=== PATIENT | female | born 1955 | race Caucasian/White ===

== ENCOUNTER 2025-03-06 08:01 | Emergency (ER) | payer OTHER, MEDICARE, SELFPAY ==
--- NOTE | ~2025-03-06 | XR_ITS ---
XR elbow LT min 3V 03/06/2025 08:37 Indication: Status post fall 6 days ago. Left elbow pain. Procedure: 4 views left elbow Comparison: No prior studies for comparison. Findings: There is an avulsion fracture of the radial head. 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 The re is a large joint effusion. The distal humerus is intact. Impression: 1: Avulsion fracture of the radial head with large joint effusion. Reviewed, dictated and finalized at location [] Impression: 1: Avulsion fracture of the radial head with large joint effusion.
--- NOTE | ~2025-03-06 | XR_ITS ---
XR wrist LT min 3V 03/06/2025 08:37 Indication: Left wrist pain status post fall 6 days ago Procedure: 4 views left wrist Comparison: No prior studies for comparison. Findings: No acute fracture or traumatic malalignment. There is mild osteoarthritis of the triscaphe joint. No focal soft tissue abnormality. No foreign bodies. There is a cortical lytic lesion of the d istal radial metaphysis dorsally. Impression: 1: Cortical lytic lesion distal radial metaphysis dorsally. Consider metastatic disease and myeloma. Correlate for history of malignancy. Reviewed, dictated and finalized at location [] Impression: 1: Cortical lytic lesion distal radial metaphysis dorsally. Consider metastatic disease and myeloma. Correlate for history of malignancy.
--- NOTE | 2025-03-06 08:02 | ED.UPPEXIN ---
HPI - Extremity Injury (Upper) General Chief Complaint: Extremity Injury, Upper Stated Complaint: INJURED L ARM/ELBOW Time Seen by Provider: 03/06/25 08:02 Source: patient Mode of arrival: ambulatory Limitations: no limitations History of Present Illness HPI narrative: Emy is a 70-year-old female patient presenting to the clinic today with complaints of a left wrist/elbow injury after falling. She reports either or Tuesday of last week she fell when she was leaving a friend's house. States that she tripped over some bricks and put her left arm out to brace her fall. States did not have pain initially however is reporting pain to the left wrist and left elbow that started 2-3 days after her initial fall. Denies hitting her head or any loss of consciousness. No neck pain. Is wearing a sling at this time. Took Aleve last night for pain. Related Data Allergies Allergy/AdvReac Type Severity Reaction Status Date / Time codeine Allergy Severe Nausea and Verified 03/06/25 08:20 Vomiting Review of Systems Review of Systems: Pertinent positives per HPI. Patient denies any fever, chills, rash, headache, visual changes, dizziness, cough, runny nose, sore throat, shortness of breath, chest pain, palpitations, nausea, vomiting, diarrhea, constipation, abdominal pain, or any urinary issues. PMFSH Past Medical History Medical History High blood pressure Thyroid disorder Social History Social History Smoking status: Never smoker Comments At the time of my signature, I reviewed and agree with the nursing past medical, surgical, social, and family history. There is no relevant family history pertinent to the patient complaint. Exam Narrative: General: Well-developed, well nourished, in no apparent distress Head: Normocephalic, atraumatic. Cardio: Regular rate and rhythm, s1 and s2 normal, no murmur appreciated. Resp: Clear to auscultation bilaterally, no rhonchi, rales, wheezing or rubs. Musculoskeletal: No deformity, tender to palpation over the dorsal radial wrist and the posterior elbow, elbow swelling noted, limited ROM due to swelling and pain of the left elbow, pain with extension and flexion of the long left elbow as well as supination and pronation, pain with ulnar and radial deviation as well as some flexion and extension of the left wrist, muscle strength strong and equal, peripheral pulse strong, no cyanosis, normal gait and station Course Course Emergency Course: Portions of this record may have been created with voice recognition software. Level of Care: Express Care Visit Vital Signs Vital signs: Vital Signs Temperature 36.5 C 03/06/25 08:14 Pulse Rate 97 03/06/25 08:14 Respiratory Rate 16 03/06/25 08:14 Blood Pressure 171/90 H 03/06/25 08:14 Pulse Oximetry 97 03/06/25 08:14 Oxygen Delivery Room Air 03/06/25 08:14 Temperature 36.5 C 03/06/25 08:14 Pulse Rate 97 03/06/25 08:14 Respiratory Rate 16 03/06/25 08:14 Blood Pressure 171/90 H 03/06/25 08:14 Pulse Oximetry 97 03/06/25 08:14 Oxygen Delivery Room Air 03/06/25 08:14 Vital signs reviewed MDM - Extremity Injury (Upper) MDM Narrative Medical decision making narrative: At the time of visit patient is resting comfortably on the exam table. Patient appears to be nontoxic. Diagnostics: X-rays of the left elbow and left wrist were obtained. X-ray of the left elbow shows an avulsion fracture of the radial head with a large joint effusion. X-ray of the left wrist shows a cortical lytic bone lesion of the distal radial metaphysis dorsally. Consider metastatic disease and melanoma. Correlate for malignancy. Plan: Patient denies any history of past or present cancer. X-ray of the elbow shows an avulsion fracture we will put the left arm and a long-arm splint. Will have patient follow-up with Dr. Alvarez and Dr. Sapp for further evaluation of avulsion fracture and bone lesion. Patient will likely need further imaging, blood work, and possible biopsies. Supportive measures were discussed with the patient and they voiced understanding discharge instructions and agrees to treatment plan. Return precautions reviewed Differential Diagnosis Differential diagnosis: Likely sprain and strain of wrist, fracture of wrist, fracture of humerus and other (Proximal radial fracture, contusion, soft tissue swelling/injury) Discharge Plan Discharge Clinical Impression: Closed fracture of radial head, Lesion of bone of wrist Patient Disposition: Home Condition: Stable Instructions: Antibiotic Form, Arm Fracture in Adults (ED) Additional Instructions: Rest, ice, elevate, and wear long arm OCL and arm sling as directed Tylenol/motrin for pain as discussed. Take hydrocodone as needed for moderate to severe pain Follow up with your PCP as needed Follow-up with orthopedic provider- Dr. Alvarez- call office to schedule an appointment Patient Language: Armenian Prescriptions: New hydrocodone-acetaminophen 5-325 mg tablet 1 tablet PO Q6H PRN (Reason: pain) 3 Days Qty: 12 0RF Follow-up/Referrals: Thor Sapp MD [Primary Care Provider] - Ramses Alvarez MD [Physician] - 1 Day (Avulsion fracture of the left radial head with the large joint effusion Cortical lytic lesion distal radius metaphysis dorsally-rule out metastatic disease or myeloma.) Time of Disposition: 09:15 Quality NIHSS Nursing Documentation ED NIHSS nursing documentation: reviewed/agree
[2025-03-06 08:14] VITALS: BP 171/90; PULSE 97; RESP 16; TEMP 36.5; O2SAT 97
== END 2025-03-06 09:15 | disposition home or self-care (01) ==
PROVIDERS: Emergency Provider Nurse Practitioner Family; PCP Family Medicine
DX: S52.122A Displaced fracture of head of left radius, initial encounter for closed fracture (principal); W18.09XA Striking against other object with subsequent fall, initial encounter; M89.9 Disorder of bone, unspecified; I10 Essential (primary) hypertension; E07.9 Disorder of thyroid, unspecified
CPT/HCPCS: 29105; 73080; 73110; 99214; G0463

== ENCOUNTER 2025-03-19 09:51 | Outpatient (CLI) | payer OTHER, MEDICARE, SELFPAY ==
--- NOTE | ~2025-03-19 | MR_ITS ---
MRI of the left wrist Technique: Coronal T1 weighted and proton density fat sat images, and axial and sagittal proton-densi ty and proton-density fat-sat images were acquired. Clinical History: Sprain Findings: Scapholunate ligament is intact, and there is no widening of the scapholunate interval. Radha otriquetral ligament is intact. Central articular disc of the TFCC is intact, without evidence of per foration. There is patchy amorphous marrow edema, involving the scaphoid, lunate, capitate in particular, which could reflect bone contusions versus other reactive marrow edema. No ramandeep erosion is identified. Lay int spaces are well preserved in the carpus. Flexor tendons and carpal tunnel are unremarkable. Extensor tendons are intact. There is mild diffuse subcutaneous soft tissue edema of the wrist. Possible minimal edematous change of the pronator muscl e belly. IMPRESSION: Patchy amorphous marrow edema particularly involving the scaphoid, lunate, and capitate, which could reflect bone contusions versus other reactive marrow edema. No erosive change or significant osteoart hritic change identified. Possible minimal strain of the pronator muscle belly with mild diffuse subcutaneous soft tissue edema and small amount of fluid about the fascial planes of the pronator muscle belly and flexor digitorum longus. Reviewed, dictated and finalized at location M. IMPRESSION: Patchy amorphous marrow edema particularly involving the scaphoid, lunate, and capitate, which could reflect bone contusions versus other reactive marrow cristi a. No erosive change or significant osteoarthritic change identified. Possible minimal strain of the pronator muscle belly with mild diffuse subcutan eous soft tissue edema and small amount of fluid about the fascial planes of th e pronator muscle belly and flexor digitorum longus.
== END 2025-03-19 09:52 | disposition home or self-care (01) ==
LOC: GOSHIMG 09:51
PROVIDERS: PCP Family Medicine; Visit Provider Orthopaedic Surgery
DX: M89.9 Disorder of bone, unspecified (principal); S63.502A Unspecified sprain of left wrist, initial encounter; S52.125A Nondisplaced fracture of head of left radius, initial encounter for closed fracture
CPT/HCPCS: 73221

== ENCOUNTER 2025-06-06 10:45 | Outpatient (RCR) | payer OTHER, MEDICARE, SELFPAY ==
--- NOTE | 2025-04-23 14:44 | OTOPEVAL1 ---
Assessment and note entered by Etienne Berry, OTR/Jabier, CHT OT Evaluation Information Assessment Status Evaluation Diagnosis Unspecified disorder of synovium and tenon, right and left forearm ICD-10 Condition Codes (OT) Pain in right hand M79.641,Pain in left hand M79. 642,Pain in right wrist M25.531,Pain in left wrist M25.532 Subjective Information Patient reporting several areas of pain and issues. She reports sharp pain through the LEFT radial wrist. She presents in a wrist cock up immobilizer on this side and she has been wearing this since her fall in February. MRI of her left wrist shows a bone contusion. She also reports bilateral hand burning pain that is severe at night time, wakes her up. She reports this has been going on for years. She is right hand. She reports she has been favoring her right hand since her left has been her worst hand. Difficulties with gripping, opening a jar (cannot use left hand to squeeze jar to use right to open lid), difficulties holding a fork in the left hand when the right is using a knife to cut food, and states she cannot carry a bag with the left hand. Reported Pain Level Pain Score 0,7: Self Report Additional Pain Score Comments (R) hand - no pain at rest. Increased burning pain that is dependent on her activity level that day. Can get up to 9/10 at times. (L) hand/wrist - patient reports the pain is typically 7/10, in the middle of the night her pain can get up to 10/10. Assessment OT Clinical Summary Patient referred to OT with bilateral wrist/hand pain. She has been experiencing intermittent paresthesia for 10-15 years and her reports of paresthesia are not consistent with carpal tunnel syndrome. Upper limb tension test was negative for the radial nerve. Upper limb tension test for the median nerve recreated paresthesia on the dorsum of her hands, not in the median nerve distribution . She also presents with left wrist stiffness and pain from a fall in February. Issued ROM HEP to begin to work on joint, tendon, and nerve mobility. Continued follow up indicated for continued use of modalities, therapeutic exercise, manual therapy, and HEP progression as tolerated to facilitate improved functional use of B UEs and reduced pain. Plan of Care Interventions Therapeutic Exercise,Manual Therapy,Neuro Re- education,Therapeutic Activities,Hot Pack/Cold Pack,Check Out for Orthotic/Prosthetic,Ultrasound, Paraffin OT Services Indicated Yes Treatment Frequency and 1-2x/week for 8 visits Duration These treatments will address the objective and functional deficits as defined above. The patient will be advanced safely and appropriately in order for the patient to progress towards his/her prior level of function. Additional exercises will be introduced and as well as a comprehensive home exercise program upon discharge, if needed, ?to ensure carryover of functional gains achieved in the clinic. This treatment plan has been reviewed and agreement upon by the patient.
--- NOTE | 2025-04-23 14:47 | OPREHPOC ---
Outpatient Therapy Plan of Care This is a Multidisciplinary Plan of Care that may contain components documented by all disciplines (PT, OT, and ST.) OT Problem 1 OT Problem #1 Knowledge Deficit OT Goal 1 Goal / Goal Update 1. Pt to be independent with instructed materials. Target Visit 8 OT Problem 2 OT Problem #2 Pain OT Goal 1 Goal / Goal Update 1. Patient to report reduced (L) wrist pain to 2/ 10 or less with ADLs without her brace on. 2. Patient to report reduced bilateral hand pain to 5/10 or less at night time. Target Visit 8 OT Problem 3 OT Problem #3 Impaired Range of Motion OT Goal 1 Goal / Goal Update Patient to increase left wrist active ROM 1. flexion to 70 2. extension to 55 Target Visit 8 OT Problem 4 OT Problem #4 Impaired Strength OT Goal 1 Goal / Goal Update 1. 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 2. 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 Target Visit 8 OT Problem 5 OT Problem #5 Impaired Sensation OT Goal 1 Goal / Goal Update 1. Patient to report reduction in night paresthesia in bilateral hands to be able to sleep through the night without waking up from the paresthesia. Target Visit 8
--- NOTE | 2025-06-06 11:27 | OTOPDC ---
Assessment and note entered by Etienne Berry, OTR/L, CHT OT D/C Notification 12/07/24 Diagnosis Unspecified disorder of synovium and tenon, right and left forearm ICD-10 Condition Codes (OT) Pain in right hand M79.641,Pain in left hand M79. 642,Pain in right wrist M25.531,Pain in left wrist M25.532 Subjective Information Patient reporting her left wrist continues to be painful, she continues to experience sharp pains in the wrist with activity. She reports limited progress on this side. She continues to wear an immobilizer or a compression glove for relief. She continues to experience burning pain in the right hand, but does note that the area she feels the burning is getting smaller. She continues to wake up in the middle of the night from the pain. She reports no changes in her hand function for ADLs. Reported Pain Level Additional Pain Score Comments (R) hand - 1/10 at rest. Can get up to 5/10 at times. (L) hand/wrist - patient reports 2/10 on a daily basis (down from 7/10), in the middle of the night her pain can get up to 7/10 (down from 10/10). Assessment OT Clinical Summary Patient referred to OT with bilateral wrist/hand pain. Limited progress noted in the left wrist per patient report. Objectively this wrist did make improvements with ROM and strength. She continues to report pain and is reporting reduced pain numbers from the start of care, no longer experiencing 10/10 pain. The right hand/wrist has also made progress with strength and reduced pain and paresthesia per patient report. She continues to experience paresthesia and pain nightly that wakes her up. She may benefit from an EMG for this . At this time the patient is independent with all materials and is ready for discharge. D/C OT with goals partially met. Plan of Care OT Services Indicated No
== END 2025-06-06 12:10 | disposition home or self-care (01) ==
LOC: ANHGOSHOT 10:45
PROVIDERS: PCP Family Medicine; Visit Provider Family Medicine
DX: M67.931 Unspecified disorder of synovium and tendon, right forearm (principal); M67.932 Unspecified disorder of synovium and tendon, left forearm
CPT/HCPCS: 97018; 97035; 97110; 97140; 97166

== ENCOUNTER 2025-07-23 12:38 | Outpatient (CLI) | payer OTHER, MEDICARE, SELFPAY ==
--- NOTE | ~2025-07-23 | DEXA_ITS ---
Bone Density Report Name: AMADO CORRAL Age: 70 Sex: Female Ethnicity: White Date of : 1955 Indication: postmenopausal; screening for osteoporosis; Referring Provider: TIEN SANCHEZ Study: Bone densitometry was performed. Exam Date: July 23, 2025 Accession number: [id number] Bone Density: Region BMD T-score Z-score Classification AP Spine(L1-L4) 0.957 -0.8 1.3 Normal Femoral Neck (Left) 0.610 -2.2 -0.4 Osteopenia Total Hip (Left) 0.886 -0.5 1.0 Normal Femoral Neck (Right) 0.634 -1.9 -0.2 Osteopenia Total Hip (Right) 0.870 -0.6 0.9 Normal Total Hip Mean 0.878 -0.6 1.0 Normal World Health Organization criteria for BMD impression classify patients as: Normal (T-score at or above -1.0), Osteopenia (T-score between -1.0 and -2.5), or Osteoporosis (T-score at or below -2.5). 10-year Fracture Risk(1): Major Osteoporotic Fracture 12% Hip Fracture 2.4% Reported Risk Factors: [place] (), Neck BMD=0.610, BMI=29.0 (1) FRAX(R) Version 3.08. Fracture probability calculated for an untreated patient. Fracture probability may be lower if the patient has received treatment. Clinical Information Provided by Patient: Patient maximum height was 63 Menopause Age: 49 No regular weight bearing exercise Does not regularly consume dairy products Drinks caffeinated beverages Onset of menses at age 15 Number of children 0 Impression: The patient has low bone mass, based on the Left Femoral Neck T-score. The patient has an estimated ten-year risk of hip fracture of 2.4% and an estimated ten-year risk of major fracture of 12%, based on the WHO FRAX algorithm. Discussion: BONE DENSITY IS LOW AT ONE OR MORE SKELETAL SITES. This patient's lowest T-score is low at one or more skeletal sites. It meets the World Health Organization's (WHO) criteria for ?low bone mass? (T-score between -1.0 and -2.5). The patient's 10-year risk of fracture as calculated by FRAX is less than the threshold where pharmacological therapy is recommended by the National Osteoporosis Foundation (NOF). However, all treatment decisions require clinical judgment and consideration of individual patient factors, including patient preferences, comorbidities, previous drug use, risk factors not captured in the FRAX model (e.g., frailty, falls, vitamin D deficiency, increased bone turnover, interval significant decline in bone density) and possible under or overestimation of fracture risk by FRAX. The patient should follow a healthful lifestyle (good nutrition with adequate calcium and vitamin D, and appropriate weight-bearing exercise). Follow-Up: Consider repeating this study in 2 to 3 years to reassess this patient's status, or sooner if there is some new clinical indication. Reported by: SOLO on 07/23/2025 2:35:00 PM. Reviewed, dictated and finalized at location A.
--- OUTSIDE RECORDS SUMMARY | 2025-07-23 12:44 | XMS_ITS | Clinical Summary ---
Author Organization [facility] Address [address] [place] [address] Care Team Providers Care Leather Splitter Name Role Phone Unavailable Primary Care Provider Unavailabl e Source Comments [facility],non-owned Affiliates and Associated Physician Practices is amultiple site organization consisting of ambulatory clinics and hospital sitesin [place], [place] and [place]. This disclosure is being madepursuant to the Care Everywhere program and may not contain all information available regarding this patient. Last updated 18.[facility] Allergies Active Allergy Reactions Criticality Noted Date Comments Codeine Vomiting 10/19/2019 Medications * Be aware that medications may not be up to date on this document. Alwaysverify current medications with the patient. 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 Gender Identity Not on file Sexual Orientation Not on file Last Filed Vital Signs Vital Sign Reading Time Taken Comments Blood Pressure 128/82 07/22/2021 10:20 AM CDT Pulse 102 07/22/2021 10:20 AM CDT Temperature 37.2 C (99 F) 07/22/2021 10:20 AM CDT Respiratory Rate 16 07/22/2021 10:20 AM CDT Oxygen Saturation 94% 07/22/2021 10:20 AM CDT Inhaled Oxygen Concentration - - Weight 70.3 kg (155 lb) 07/22/2021 10:20 AM CDT Height 157.5 cm (5' 2) 07/22/2021 10:20 AM CDT Body Mass Index 28.35 07/22/2021 10:20 AM CDT Plan of Treatment Health Maintenance Due Date Last Done Comments BONE DENSITY TESTING 1955 COLOGUARD (AGES 45-75) - COL ON CA SCREENING 1955 COLON MONITORING 1955 COLONOSCOPY - COLON CA SCREENING 1956 CT COLONOGRAPHY - COLON CA SCREENING 1955 FLEX SIG - COLON CA SCREENING 1955 LIPID TESTING 1955 MAMMOGRAM 1955 HEPATITIS C SCREENING 01/12/1974 DTAP/TDAP/TD VACCINES (1 - Tdap) 1975 PNEUMOCOCCAL VACCINE 50+ (1 of 1 - PCV) 2006 ZOSTER VACCINE (1 of 2) 2006 Colorectal Cancer Screening 10/07/2012 FIT - COLON CA SCREENING 10/07/2012 10/07/2011 SCREENING FOR DIABETES 07/22/2021 COVID-19 VACCINE (1 - 2023-2 5 season) 2024 DEPRESSION SCREENING 11/21/2024 INFLUENZA VACCINE (#1) 2025 Respiratory Syncytial Virus (RSV) Vaccine Pt: or over 60 yrs (1 - 1-dose 75+ series) 2031 HEPATITIS B VACCINE Aged Out No longe r eligible based on patient's age to complete this topic HIB VACCINE Aged Out No longer eligi ble based on patient's age to complete this topic HPV VACCINE Aged Out No longer eligi ble based on patient's age to complete this topic MENINGOCOCCAL (Group B) VACC INE SHARED DECISION-MAKING Aged Out No longer eligibl e based on patient's age to complete this topic MENINGOCOCCAL GROUPS A/C/Y/W VACCINE Aged Out No longer eligible b ased on patient's age to complete this topic Insurance [facility]
== END 2025-07-23 12:39 | disposition home or self-care (01) ==
PROVIDERS: PCP Family Medicine; Visit Provider Family Medicine
DX: M85.852 Other specified disorders of bone density and structure, left thigh (principal); M85.851 Other specified disorders of bone density and structure, right thigh; Z78.0 Asymptomatic menopausal state
CPT/HCPCS: 77080